=== PATIENT | female | born 1940 | race Caucasian/White ===

== ENCOUNTER → 2016-12-05 | Outpatient (CLI) | payer MEDICARE ==
--- NOTE | 2016-12-06 08:53 | MM ---
Reason for exam: screening (asymptomatic). Last mammogram was performed 1 year ago. History: Patient is postmenopausal. Family history of premenopausal breast cancer in mother at age 48. Excisional biopsy of the right breast, December 12, 2007. Benign right mammotome panel of the right breast, May 30, 2007. Benign excisional biopsy of the left breast, 1993. Took estrogen for 5 years beginning at age 54. Took progesterone for 5 years beginning at age 54. Physical Findings: A clinical breast exam by your physician is recommended on an annual basis and results should be correlated with mammographic findings. MG 3D Screening Mammo W/Cad Bilateral CC and MLO view(s) were taken. Prior study comparison: November 29, 2015, bilateral MG 3d screening mammo w/cad. November 02, 2014, bilateral MG screening mammo w CAD. The breast tissue is heterogeneously dense. This may lower the sensitivity of mammography. Finding: There are typically benign calcifications in both breasts. No significant changes in finding since November 29, 2015 and November 02, 2014. ASSESSMENT: Benign, BI-RAD 2 RECOMMENDATION: Routine screening mammogram of both breasts in 1 year.
== END | disposition home or self-care (01) ==
LOC: RADMAMWWP 10:34
PROVIDERS: ATTEND Family Medicine
DX: Z12.31 Encounter for screening mammogram for malignant neoplasm of breast (principal)
CPT/HCPCS: 77063; G0202

== ENCOUNTER 2017-04-05 07:49 | Day surgery (SDC) | payer MEDICARE ==
[2017-04-02 13:55] VITALS: BMI 25.7
--- NOTE | 2017-04-04 09:41 | HP ---
HISTORY AND PHYSICAL CHIEF COMPLAINT: Right knee pain. HISTORY OF PRESENT ILLNESS: The patient is a 76-year-old retired female who presents with progressive right knee pain after an initial injury in October of 2016. She twisted her knee. She has had persistent pain, catching, and giving way. She has tried medications along with an injection with only partial temporary relief. PAST MEDICAL HISTORY: Significant for hypertension, hypothyroidism, hyperlipidemia, and renal disease. PAST SURGICAL HISTORY: Significant for bunion surgery, hysterectomy, appendectomy, carpal tunnel release and right total hip arthroplasty along with left knee arthroscopy. CURRENT MEDICATIONS: Amlodipine, levothyroxine, simvastatin, and trazodone. ALLERGIES: She denies drug allergies. FAMILY HISTORY: Significant for cancer and heart disease. SOCIAL HISTORY: Negative for current tobacco or alcohol use. REVIEW OF SYSTEMS: Sixteen point review of systems otherwise reviewed and is noncontributory. PHYSICAL EXAMINATION: On examination, the patient is approximately 5 feet 3 inches, 145 pounds of mesomorphic habitus. HEENT exam is nonfocal. Neck is supple. She has painless passive motion of her right hip. Straight leg raise is negative. Active motion right knee -8 to 125 degrees of flexion. She has a moderate effusion. She is tender about the medial joint line. Collaterals are stable, Beny's negative, Bel's elicits medial pain. She has genu varum alignment. Her distal neurovascular appears intact in the right lower extremity. MRI report 02/27/2017 of the right knee shows a posterior medial meniscal tear along with medial compartment degenerative changes. IMPRESSION: 1. Right knee symptomatic medial meniscal tear. 2. History of renal disease. RECOMMENDATIONS: I talked to the patient at length regarding her treatment options. She is having persistent pain and mechanical symptoms that limit her despite conservative measures. After thorough discussion, she opts to proceed with surgery. We will plan to proceed with arthroscopic evaluation with probable partial medial meniscectomy. Risks and benefits were discussed at length in layman's terms. MMODL / IJN: [id number] /
[~2017-04-05 07:49] MED LIST: DEXAMETHASONE SOD PHOSPHATE 10 MG/ML 1 ML VIAL IV ONE; LACTATED RINGERS 1,000 ML IV SCH; MIDAZOLAM 2 MG/2 ML VIAL IV PRN; ONDANSETRON 4 MG/2 ML VIAL IVP ONE; ceFAZolin 1,000 MG in DEXTROSE/WATER 1 50ML.BAG IV ONE
[2017-04-05] MEDS ORDERED: LIDOCAINE 1% 20 ML VIAL (10MG/ML) FOR IV START INTRADERMA ONE (08:24)
[2017-04-05] MEDS ORDERED: MIDAZOLAM 2 MG/2 ML VIAL ONE (09:07)
[2017-04-05] MEDS ORDERED: KETOROLAC 30 MG/ML 1 ML VIAL ONE (09:07)
[2017-04-05] MEDS ORDERED: fentaNYL (PF) 50 MCG/ML 2 ML AMP ONE (09:07)
[2017-04-05] MEDS ORDERED: PROPOFOL 10 MG/ML 20 ML VIAL IV ONE (09:07)
[2017-04-05] MEDS ORDERED: LIDOCAINE 1% INJ 10MG/ML (20 ML MDV) ONE (09:07)
--- NOTE | 2017-04-05 09:57 | P.OP ---
Date of Procedure: 04/05/17 Preoperative Diagnosis: Right knee internal derangement Postoperative Diagnosis: Right knee posterior medial meniscal tear/middle one third lateral meniscal tear /chondrocalcinosis with reactive synovitis/grade 3 chondral injury distal central medial femoral condyle Procedure(s) Performed: Right knee arthroscopic partial medial meniscectomy/partial lateral meniscectomy /medial femoral chondrectomy/partial synovectomy of the medial and lateral compartments Anesthesia: GETA Surgeon: Evan Huddleston Pole Tester #1: Cabrera Mcarthur Estimated Blood Loss (ml): 10 Pathology: none sent Condition: stable Disposition: PACU Indications for Procedure: Patient is a 77-year-old female who presents with progressive right knee pain and mechanical symptoms after a previous twisting injury. She tried conservative measures was persistence of her symptoms. A discussion of the risks and benefits of continued conservative measures versus operative intervention was made with the patient. She opted to proceed with surgery. Operative risks to include infection, neurovascular injury, development of blood clots, possible incomplete resolution of symptoms, possible worsening symptoms and need for subsequent procedures was discussed. Informed consent was obtained. Operative Findings: As below Description of Procedure: The patient was brought to the operating room, and after induction of general anesthesia examined the right knee. Collaterals were stable, Beny was negative, and posterior drawer was negative. The right lower extremity was prepped and draped in normal fashion. A superior lateral portal was made through a 3 mm skin incision superior and lateral to the patella. This was used for outflow. A lateral portal was made through a 5 mm vertical skin incision lateral to the patella tendon above the joint. Diagnostic arthroscopy was performed. A medial portal was made through a similar incision medial to the patella tendon above the joint line. On inspection of the medial compartment, she is noted to have a complex macerated tear involving the posterior horn of the medial meniscus in the white-red junction. This was not amenable to repair. This debrided back to stable base with straight baskets and a motorized shaver. A grade 2 chondral injury was noted involving the central portion of the distal medial femoral condyle. There was a loose chondral fragment. This was debrided back to a stable base with a motorized shaver. Chondrocalcinosis was present. Reactive synovitis involving the anterior medial and lateral compartments was debrided with a motorized shaver. On inspection the notch, the anterior cruciate ligament appeared to be intact. On inspection of the lateral compartment, and oblique tear involving the middle one third of the lateral meniscus was noted in the white-white junction. This was debrided back to stable base with straight baskets. The remaining lateral meniscus was stable and intact. On inspection the patellofemoral articulation, animal degenerative changes were noted. The gutters were clear debris. The knee was then thoroughly irrigated. The portals were closed with Steri-Strips. A sterile dressing was applied in addition to a compression stocking. The patient was awoken from general anesthesia and transferred to the recovery room in good condition. Blood loss was estimated 10 mL. No complications were incurred.
[2017-04-05 10:00] VITALS: TEMP 97.6
[2017-04-05 10:02] VITALS: RESP 16
[2017-04-05] MEDS: HYDROmorphone 0.5 MG/0.5 ML SYRINGE IVP PRN ×2 (10:11→10:31)
[2017-04-05] MEDS ORDERED: traMADol 50 MG TAB PO ONE (11:35)
[2017-04-05 11:53] VITALS: BP 147/78; PULSE 74
== END 2017-04-05 12:28 | disposition home or self-care (01) ==
LOC: OR 07:49
PROVIDERS: ATTEND Orthopaedic Surgery
DX: S83.281A Other tear of lateral meniscus, current injury, right knee, initial encounter (principal); S83.241A Other tear of medial meniscus, current injury, right knee, initial encounter; M11.261 Other chondrocalcinosis, right knee; M65.861 Other synovitis and tenosynovitis, right lower leg; S89.91XA Unspecified injury of right lower leg, initial encounter; I10 Essential (primary) hypertension; E78.5 Hyperlipidemia, unspecified; E03.9 Hypothyroidism, unspecified; X58.XXXA Exposure to other specified factors, initial encounter; Z79.899 Other long term (current) drug therapy; Z79.51 Long term (current) use of inhaled steroids
CPT/HCPCS: 29880; J2250; J1100; J2405; J2001; J3010; J1885; J0690; J2704; J1170

== ENCOUNTER → 2017-12-06 | Outpatient (CLI) | payer MEDICARE ==
--- NOTE | 2017-12-09 10:45 | MM ---
Reason for exam: screening (asymptomatic). Last mammogram was performed 1 year ago. History: Patient is postmenopausal. Family history of premenopausal breast cancer in mother at age 48. Excisional biopsy of the right breast, December 12, 2007. Benign right mammotome panel of the right breast, May 30, 2007. Benign excisional biopsy of the left breast, 1993. Took estrogen for 5 years beginning at age 54. Took progesterone for 5 years beginning at age 54. Physical Findings: A clinical breast exam by your physician is recommended on an annual basis and results should be correlated with mammographic findings. MG 3D Screening Mammo W/Cad Bilateral CC and MLO view(s) were taken. Prior study comparison: December 05, 2016, bilateral MG 3d screening mammo w/cad. November 29, 2015, bilateral MG 3d screening mammo w/cad. The breast tissue is heterogeneously dense. This may lower the sensitivity of mammography. Finding: There are typically benign round, regional calcifications in the right breast. There is no discrete abnormality. ASSESSMENT: Benign, BI-RAD 2 RECOMMENDATION: Routine screening mammogram of both breasts in 1 year.
== END | disposition home or self-care (01) ==
LOC: RADMAMWWP 10:43
PROVIDERS: ATTEND Family Medicine
DX: Z12.31 Encounter for screening mammogram for malignant neoplasm of breast (principal)
CPT/HCPCS: 77063; 77067

== ENCOUNTER → 2018-12-29 | Outpatient (CLI) | payer MEDICARE ==
--- NOTE | 2018-12-30 10:36 | MM ---
Reason for exam: screening (asymptomatic). Last mammogram was performed 1 year and 1 month ago. History: Patient is postmenopausal. Family history of premenopausal breast cancer in mother at age 48. Excisional biopsy of the right breast, December 12, 2007. Benign right mammotome panel of the right breast, May 30, 2007. Benign excisional biopsy of the left breast, 1993. Took estrogen for 5 years beginning at age 54. Took progesterone for 5 years beginning at age 54. Physical Findings: A clinical breast exam by your physician is recommended on an annual basis and results should be correlated with mammographic findings. MG 3D Screening Mammo W/Cad Bilateral CC and MLO view(s) were taken. Prior study comparison: December 06, 2017, bilateral MG 3d screening mammo w/cad. December 05, 2016, bilateral MG 3d screening mammo w/cad. The breast tissue is heterogeneously dense. This may lower the sensitivity of mammography. Benign appearing bilateral calcifications. Post surgical change bilaterally. ASSESSMENT: Benign, BI-RAD 2 RECOMMENDATION: Routine screening mammogram of both breasts in 1 year.
== END | disposition home or self-care (01) ==
LOC: RADMAMWWP 12:32
PROVIDERS: ATTEND Family Medicine
DX: Z12.31 Encounter for screening mammogram for malignant neoplasm of breast (principal)
CPT/HCPCS: 77063; 77067

== ENCOUNTER → 2020-04-05 | Outpatient (CLI) | payer MEDICARE ==
--- NOTE | 2020-04-07 11:31 | MM ---
Reason for exam: screening (asymptomatic). Last mammogram was performed 1 year and 3 months ago. History: Patient is postmenopausal. Family history of premenopausal breast cancer in mother at age 48. Excisional biopsy of the right breast, December 12, 2007. Benign right mammotome panel of the right breast, May 30, 2007. Benign excisional biopsy of the left breast, 1993. Took estrogen for 5 years beginning at age 54. Took progesterone for 5 years beginning at age 54. Physical Findings: A clinical breast exam by your physician is recommended on an annual basis and results should be correlated with mammographic findings. MG 3D Screening Mammo W/Cad Bilateral CC and MLO view(s) were taken. XCCL view(s) were taken of the right breast. Prior study comparison: December 29, 2018, bilateral MG 3d screening mammo w/cad. December 06, 2017, bilateral MG 3d screening mammo w/cad. There are scattered fibroglandular densities. Finding #1: There is a mass located 7.5 cm from the nipple in the upper outer quadrant, posterior position of the right breast. Finding #2: There are typically benign unchanged calcifications in the right breast. More defined since December 29, 2018 and December 06, 2017. ASSESSMENT: Incomplete: need additional imaging evaluation, BI-RAD 0 RECOMMENDATION: Special view mammogram of the right breast. If lesion persists on supplemental views, image directed ultrasound is recommended. [facility] will attempt to contact patient to return for supplemental views and ultrasound if indicated.
== END | disposition home or self-care (01) ==
LOC: RADMAMWWP 14:48
PROVIDERS: ATTEND Family Medicine
DX: Z12.31 Encounter for screening mammogram for malignant neoplasm of breast (principal)
CPT/HCPCS: 77063; 77067

== ENCOUNTER → 2020-04-08 | Outpatient (CLI) | payer MEDICARE ==
--- NOTE | 2020-04-08 10:24 | MM ---
Reason for exam: additional evaluation requested from abnormal screening. Last mammogram was performed less than 1 month ago. History: Patient is postmenopausal. Family history of premenopausal breast cancer in mother at age 48. Excisional biopsy of the right breast, December 12, 2007. Benign right mammotome panel of the right breast, May 30, 2007. Benign excisional biopsy of the left breast, 1993. Took estrogen for 5 years beginning at age 54. Took progesterone for 5 years beginning at age 54. Physical Findings: Nurse did not find any significant physical abnormalities on exam. MG 3D Work Up W/Cad RT Spot compression CC, spot compression MLO, LM, and XCCL view(s) were taken of the right breast. Prior study comparison: April 05, 2020, bilateral MG 3d screening mammo w/cad. December 29, 2018, bilateral MG 3d screening mammo w/cad. The breast tissue is heterogeneously dense. This may lower the sensitivity of mammography. Vague distortion upper outer quadrant right breast may be related to prior biopsy at this location. These results were verbally communicated with the patient and result sheet given to the patient on 04/08/20. ASSESSMENT: Probably benign, BI-RAD 3 RECOMMENDATION: Follow-up diagnostic mammogram of the right breast in 6 months.
== END | disposition home or self-care (01) ==
LOC: RADMAMWWP 08:17
PROVIDERS: ATTEND Family Medicine
DX: R92.8 Other abnormal and inconclusive findings on diagnostic imaging of breast (principal)
CPT/HCPCS: 77065; G0279; 77061

== ENCOUNTER → 2020-11-02 | Outpatient (CLI) | payer MEDICARE ==
--- NOTE | 2020-11-02 11:42 | MM ---
Reason for exam: follow-up at short interval from prior study. Last mammogram was performed 7 months ago. History: Patient is postmenopausal. Family history of premenopausal breast cancer in mother at age 48. Excisional biopsy of the right breast, December 12, 2007. Benign right mammotome panel of the right breast, May 30, 2007. Benign excisional biopsy of the left breast, 1993. Took estrogen for 5 years beginning at age 54. Took progesterone for 5 years beginning at age 54. Physical Findings: Nurse did not find any significant physical abnormalities on exam. MG 3D Diag Mammo W/Cad RT CC and MLO view(s) were taken of the right breast. Prior study comparison: April 08, 2020, right breast MG 3d work up w/cad RT. April 05, 2020, bilateral MG 3d screening mammo w/cad. The breast tissue is heterogeneously dense. This may lower the sensitivity of mammography. Stable post operative changes right breast. No significant new findings when compared with previous films. These results were verbally communicated with the patient and result sheet given to the patient on 11/02/20. ASSESSMENT: Benign, BI-RAD 2 RECOMMENDATION: Follow-up diagnostic mammogram of both breasts in 6 months. Back on schedule.
== END | disposition home or self-care (01) ==
LOC: RADMAMWWP 10:49
PROVIDERS: ATTEND Family Medicine
DX: R92.2 Inconclusive mammogram (principal); Z78.0 Asymptomatic menopausal state; Z80.3 Family history of malignant neoplasm of breast
CPT/HCPCS: 77065; G0279; 77061

== ENCOUNTER → 2021-06-01 | Outpatient (CLI) | payer MEDICARE ==
--- NOTE | 2021-06-01 13:41 | MM ---
Reason for exam: additional evaluation requested from prior study. Last mammogram was performed 7 months ago. History: Patient is postmenopausal. Family history of breast cancer in sister and premenopausal breast cancer in mother at age 48. Excisional biopsy of the right breast, December 12, 2007. Benign right mammotome panel of the right breast, May 30, 2007. Benign excisional biopsy of the left breast, 1993. Took estrogen for 5 years beginning at age 54. Took progesterone for 5 years beginning at age 54. Physical Findings: Nurse did not find any significant physical abnormalities on exam. MG 3D Diag Mammo W/Cad EDDIE Bilateral CC and MLO view(s) were taken. Prior study comparison: November 02, 2020, right breast MG 3d diag mammo w/cad RT. April 08, 2020, right breast MG 3d work up w/cad RT. The breast tissue is heterogeneously dense. This may lower the sensitivity of mammography. Stable benign calcifications. There is no discrete abnormality. No significant new findings when compared with previous films. These results were verbally communicated with the patient and result sheet given to the patient on 06/01/21. ASSESSMENT: Benign, BI-RAD 2 RECOMMENDATION: Routine screening mammogram of both breasts in 1 year.
== END | disposition home or self-care (01) ==
LOC: RADMAMWWP 12:46
PROVIDERS: ATTEND Family Medicine
DX: R92.8 Other abnormal and inconclusive findings on diagnostic imaging of breast (principal); Z78.0 Asymptomatic menopausal state; Z80.3 Family history of malignant neoplasm of breast
CPT/HCPCS: 77066; G0279; 77062

== ENCOUNTER → 2022-04-04 | Outpatient (CLI) | payer MEDICARE ==
--- NOTE | 2022-04-05 21:28 | MR ---
EXAMINATION TYPE: MR brain wo con DATE OF EXAM: 04/04/2022 COMPARISON: NONE HISTORY: Mild cognitive impairment TECHNIQUE: Multiplanar, multisequence imaging of the brain and brainstem is performed without IV cont rast. FINDINGS: Diffusion weighted images demonstrate no evidence of a recent infarct or other diffusion abnormality. There is mild to moderate ventricular and sulcal prominence. Occasional area of T2 hyperintensity see n throughout the deep and periventricular white matter. Midline structures demonstrate normal morphology. The craniocervical junction appears within normal limits. Normal vascular flow voids are present. The visualized sinuses are clear and the globes are i ntact. Nasal septum is deviated to right of midline. IMPRESSION: Mild to moderate diffuse cerebral atrophy and mild chronic small vessel ischemic change i s present.
== END | disposition home or self-care (01) ==
LOC: RADMRIMAIN 07:39
PROVIDERS: ATTEND Family Medicine
DX: I67.82 Cerebral ischemia (principal); G31.9 Degenerative disease of nervous system, unspecified
CPT/HCPCS: 70551

== ENCOUNTER → 2022-06-05 | Outpatient (CLI) | payer MEDICARE ==
--- NOTE | 2022-06-05 12:16 | BD ---
EXAMINATION TYPE: Axial Bone Density DATE OF EXAM: 06/05/2022 COMPARISON: BASELINE CLINICAL HISTORY: 82 years year old Female. 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 History of Fracture in Adulthood: NO Secondary Osteoporosis: 1. Type 1 Diabetes: NO 2. Hyperthyroidism: NO 3. Menopause before 45: NO 4. Malnutrition: NO 5. Chronic liver disease: NO Rheumatoid Arthritis: NO Current Tobacco Use: NO RISK FACTORS HISTORY OF: Hip Fracture (Right/Left): NO Spine Fracture: NO History of Wrist Fracture: NO Surgery to Spine/Hip(right/left)/Wrist (right/left): YES, RIGHT HIP When: APPROX. 8 YEARS AGO Family History of Osteoporosis: NO Active: YES Diet low in dairy products/other sources of calcium: YES Postmenopausal woman: YES Lost more than 2 inches in height since high school: NO Frequent falls: NO Poor Health: GOOD Hyperparathyroidism: NO Adrenal Insufficiency: NO MEDICATIONS: Thyroid Medications: YES Which medication: LEVOTHYROXINE How Long: SEVERAL YEARS Osteoporosis Medications: YES Which medication: FOSAMAX How Long: A FEW YEARS (PATIENT NOT SURE) Additional Medications: POTASSIUM, BLOOD PRESSURE Meds, calcium, MULTIVITAMIN Additional History: BEST RECOLLECTION OF MEDICATIONS PATIENT DID NOT HAVE A LIST EXAM MEASUREMENTS: Bone mineral densitometry was performed using the [employer] System. Bone mineral density as measured about the Lumbar spine is: ----- L1-L4(G/cm2): 1.346 T Score Values are as follows: ----- L1: -0.4 ----- L2: 0.3 ----- L3: 2.3 ----- L4: 2.7 ----- L1-L4: 1.4 BASELINE PER PATIENT Bone mineral density about the L hip (g/cm2): 0.976 T Score values are as follows: -----L Neck: -0.4 -----L Total: -1.5 BASELINE PER PATIENT FRAX%s: The graph provided illustrates a 9.6% chance for a major osteoporotic fx and a 1.4% chance fo r the hips probability for fx in 10 years time. IMPRESSION: Osteopenia (T Score between -2.5 and -1). There is slightly increased risk of fracture and the patient may be considered for treatment. Re-Screen 2-5 years. NOTE: T-SCORE=SD OF THE YOUNG ADULT MEAN.
--- NOTE | 2022-06-05 16:59 | MM ---
Reason for Exam: Screening (asymptomatic). Last screening mammogram was performed 12 month(s) ago. Patient History: Menarche at age 15. First Full-Term at age 19. Left ovary removed at age 54. Right ovary removed at age 54. Hysterectomy at age 54. Postmenopausal. Estrogen for 5 years from age 54 until age 59. Progesterone for 5 years from age 54 until age 59. 12/12/2007, Excisional Biopsy on the Right side. 1993, Benign Excisional Biopsy on the left side. 05/30/2007, Benign Core Biopsy on the right side. Sister had breast cancer. Mother had breast cancer, age 48. Risk Values: Vivienne 5 year model risk: 11.4%. NCI Lifetime model risk: 17.0%. Prior Study Comparison: 01/27/1996 Screening Mammogram, Unknown. 11/29/2015 Bilateral Screening Mammogram, [facility]. 12/05/2016 Bilateral Screening Mammogram, [facility]. 12/06/2017 Bilateral Screening Mammogram, [facility]. 12/29/2018 Bilateral Screening Mammogram, [facility]. 04/05/2020 Bilateral Screening Mammogram, [facility]. 04/08/2020 Right Diagnostic Mammogram, [facility]. 11/02/2020 Right Diagnostic Mammogram, [facility]. 06/01/2021 Bilateral Diagnostic Mammogram, [facility]. Tissue Density: The breast tissue is heterogeneously dense. This may lower the sensitivity of mammography. Findings: Analyzed By CAD. There is stable 5 mm oval circumscribed mass in the left breast posterior upper outer quadrant presumed benign lymph node. A few benign-appearing round and vascular calcifications are seen bilaterally. There is no suspicious new group of microcalcifications or new suspicious mass in either breast. Overall Assessment: Benign, BI-RAD 2 Management: Screening Mammogram of both breasts in 1 year. A clinical breast exam by your physician is recommended on an annual basis and results should be correlated with mammographic findings. Electronically signed and approved by: Ger Carvajal M.D.
== END | disposition home or self-care (01) ==
LOC: RADMAMWWP 09:48
PROVIDERS: ATTEND Family Medicine
DX: Z12.31 Encounter for screening mammogram for malignant neoplasm of breast (principal); M81.0 Age-related osteoporosis without current pathological fracture; M85.89 Other specified disorders of bone density and structure, multiple sites; Z78.0 Asymptomatic menopausal state; Z80.3 Family history of malignant neoplasm of breast; Z90.721 Acquired absence of ovaries, unilateral
CPT/HCPCS: 77063; 77067; 77080